=== PATIENT | female | born 1990 | race Caucasian/White ===

== ENCOUNTER 2017-06-23 22:20 | Emergency (ER) | payer MEDICAID | END 2017-06-24 01:36 | disposition home or self-care (01) | LOC: D.ER 22:20 | DX: N76.4 Abscess of vulva (principal) ==

== ENCOUNTER 2017-08-04 18:06 | Emergency (ER) | payer MEDICAID | END 2017-08-04 19:28 | disposition home or self-care (01) | LOC: D.ER 18:06 | DX: K04.7 Periapical abscess without sinus (principal); K08.89 Other specified disorders of teeth and supporting structures; F17.200 Nicotine dependence, unspecified, uncomplicated ==